=== PATIENT | male | born 1940 | race African-American/Black ===

== ENCOUNTER 2017-09-16 08:08 | Emergency (ER) | payer OTHER ==
[~2017-09-16] VITALS: Ht 185.4 cm; Wt 96.0 kg
[~2017-09-16 08:08] MED LIST: ASPI-516 PO; CLOP75TA PO; FINA5TAB2 PO; LOSA50TA2 PO; METO50TA PO; PRAV20TA2 PO; TERA10CA3 PO
[2017-09-16 08:10] VITALS: BP 199/87; PULSE 61; RESP 14; TEMP 98.2; O2SAT 100
--- NOTE | 2017-09-16 08:31 | PD ---
HPI Chief Complaint: Complaint Time Seen by Provider: 08:31 Travel History International Travel<30 days: No Contact w/Intl Traveler<30days: No Traveled to known affect area: No History of Present Illness HPI 77-year-old male came to the emergency room with his for hematuria. Patient says that at 7:00 this morning when he went to use the bathroom he was urinating blood. This is never happened to him before. There is no pain involved. Patient does not think he was able to empty his bladder completely. He has not had another urine output since then. Patient is on Plavix. Vital signs were stable. Patient has a large hydrocele and used to see urology but has stopped seeing them now. PFSH Past Medical History Narrative Medical List of his past medical, surgical, social and family history is reviewed from the nursing note. Hx Anticoagulant Therapy: Yes Arthritis: No Asthma: No Atrial Fibrillation: Yes Autoimmune Disease: No Heart Rhythm Problems: Yes Cancer: No Cardiovascular Problems: Yes (cabg, BRADYCARDIA ) High Cholesterol: No Chest Pain: No Congestive Heart Failure: No COPD: No Cerebrovascular Accident: No Diabetes: No Diminished Hearing: No Endocrine: No Gastrointestinal Disorders: No GERD: No Glaucoma: No Genitourinary: Yes Headaches: No Hepatitis: No Hiatal Hernia: No Hypertension: Yes Immune Disorder: No Implanted Vascular Access Dvce: Yes Kidney Stones: No Musculoskeletal: No Neurologic: No Psychiatric: No Reproductive: No Respiratory: No Migraines: No Myocardial Infarction: No Renal Failure: No Seizures: No Sleep Apnea: No Thyroid Disease: No Ulcer: No Past Surgical History AICD: No Cardiac Surgery: Yes (pacemaker insertion) Coronary Artery Bypass Graft: Yes Pacemaker: Yes Other Surgery: Yes (PM L SIDE ST ANA) Social History Alcohol Use: No Tobacco Use: No Substance Use: No Allergies-Medications (Allergen,Severity, Reaction): Coded Allergies: No Known Allergies (Verified Adverse Reaction, Unknown, 09/16/17) Comments No known drug allergies. Reported Meds & Prescriptions Reported Meds & Active Scripts Active Reported Losartan-Hydrochlorothiazide 50-12.5 Mg Tab 1 Tab PO DAILY Finasteride 5 Mg Tab 5 Mg PO DAILY Do not crush. Clopidogrel (Clopidogrel Bisulfate) 75 Mg Tab 75 Mg PO DAILY Pravastatin 20 Mg Tab 20 Mg PO DAILY Terazosin (Terazosin HCl) 10 Mg Cap 10 Mg PO HS Metoprolol Tartrate 50 Mg Tab 50 Mg PO DAILY Aspirin 81 Mg Chew 81 Mg PO DAILY Narrative Medication List of his home medications reviewed from the nursing note. Review of Systems Except as stated in HPI: all other systems reviewed are Neg Genitourinary: Positive: Hematuria Physical Exam Narrative GENERAL: Awake, alert, no obvious distress, anxious SKIN: Focused skin assessment warm/dry. HEAD: Atraumatic. Normocephalic. EYES: Pupils equal and round. No scleral icterus. No injection or drainage. ENT: No nasal bleeding or discharge. Mucous membranes pink and moist. NECK: Trachea midline. No JVD. CARDIOVASCULAR: Regular rate and rhythm. No murmur appreciated. RESPIRATORY: No accessory muscle use. Clear to auscultation. Breath sounds equal bilaterally. GASTROINTESTINAL: Abdomen soft, non-tender, nondistended. Hepatic and splenic margins not palpable. : Large hydrocele. Blood and clot at the end of the meatus MUSCULOSKELETAL: No obvious deformities. No clubbing. No cyanosis. No edema. NEUROLOGICAL: Awake and alert. No obvious cranial nerve deficits. Motor grossly within normal limits. Normal speech. PSYCHIATRIC: Appropriate mood and affect; insight and judgment normal. Data Data Last Documented VS Orders Orders Complete Blood Count With Diff (09/16/17 08:38) Basic Metabolic Panel (Bmp) (09/16/17 08:38) Prothrombin Time / Inr (Pt) (09/16/17 08:38) Urinalysis - C+S If Indicated (09/16/17 08:38) Bladder/Catheter Irrigation (09/16/17 08:38) Lidocaine 2% Jelly (Xylocaine 2% Jelly) (09/16/17 08:45) Type And Screen (09/16/17 08:40) Ct Abd/Pel W/O Iv Contrast (09/16/17 ) Ed Discharge Order (09/16/17 11:02) Labs Laboratory Tests Test 09/16/17 08:45 White Blood Count 4.9 TH/MM3 Red Blood Count 5.17 MIL/MM3 Hemoglobin 13.3 GM/DL Hematocrit 41.2 % Mean Corpuscular Volume 79.7 FL Mean Corpuscular Hemoglobin 25.8 PG Mean Corpuscular Hemoglobin Concent 32.4 % Red Cell Distribution Width 14.6 % Platelet Count 168 TH/MM3 Mean Platelet Volume 8.1 FL Neutrophils (%) (Auto) 62.4 % Lymphocytes (%) (Auto) 25.9 % Monocytes (%) (Auto) 7.2 % Eosinophils (%) (Auto) 3.3 % Basophils (%) (Auto) 1.2 % Neutrophils # (Auto) 3.1 TH/MM3 Lymphocytes # (Auto) 1.3 TH/MM3 Monocytes # (Auto) 0.4 TH/MM3 Eosinophils # (Auto) 0.2 TH/MM3 Basophils # (Auto) 0.1 TH/MM3 CBC Comment DIFF FINAL Differential Comment Prothrombin Time 11.6 SEC Prothromb Time International Ratio 1.1 RATIO Urine Color YELLOW Urine Turbidity CLEAR Urine pH 6.5 Urine Specific [place] 1.011 Urine Protein NEG mg/dL Urine Glucose (UA) NEG mg/dL Urine Ketones NEG mg/dL Urine Occult Blood SMALL Urine Nitrite NEG Urine Bilirubin NEG Urine Urobilinogen LESS THAN 2.0 MG/DL Urine Leukocyte Esterase NEG Urine RBC 18 /hpf Urine WBC LESS THAN 1 /hpf Urine Mucus FEW /lpf Microscopic Urinalysis Comment CULT NOT INDICATED Blood Urea Nitrogen 12 MG/DL Creatinine 1.28 MG/DL Random Glucose 125 MG/DL Calcium Level 9.0 MG/DL Sodium Level 140 MEQ/L Potassium Level 4.2 MEQ/L Chloride Level 107 MEQ/L Carbon Dioxide Level 26.7 MEQ/L Anion Gap 6 MEQ/L Estimat Glomerular Filtration Rate 66 ML/MIN MDM Medical Decision Making Medical Screen Exam Complete: Yes Emergency Medical Condition: Yes Medical Record Reviewed: Yes Differential Diagnosis Bladder tumor, renal tumor, hemorrhagic cystitis Narrative Course 10:26 AM patient had a three-way catheter in and got continuous bladder irrigation for half an hour. After the initial small clot that came out rest of the efluent has been clear with pink tinge. Blood test results of back and within acceptable limits. I have ordered for a CT of his abdomen and pelvis. If that is unremarkable I will discharge him home with a Beltran catheter and to follow up with urology. 11:[address] scan shows renal cyst. I will discharge him home with a catheter and a leg bag. Procedures EKG Prior to Arrival: No Diagnosis Primary Impression: Hematuria Qualified Codes: R31.9 - Hematuria, unspecified Referrals: Gurdeep Robles DO 2 days Additional Instructions: Please follow-up with the urologist whose name and number been provided to you on this discharge paper work. Return to the ER if condition worsens or any other new concerns. Follow the instruction of the nurse to empty the leg bag and take care of the catheter to see the urologist. Disposition: 01 DISCHARGE HOME Condition: Stable Maribel Manley MD Sep 16, 2017 08:31
[2017-09-16 08:34] VITALS: BP 185/81; PULSE 60; RESP 20; O2SAT 100
[2017-09-16] MEDS ORDERED: LIDOCAINE HCL 2% JELLY 5 ML SYRINGE TOPICAL ONE (08:45)
[2017-09-16 09:05] VITALS: BP 165/84; PULSE 60; RESP 20; O2SAT 100
[2017-09-16 09:25] LABS: AUTOMATED NEUTROPHIL # 3.1 TH/MM3 (1.8-7.7); BASOPHIL # 0.1 TH/MM3 (0-0.2); BASOPHIL % 1.2 % (0.0-2.0); EOSINOPHIL # 0.2 TH/MM3 (0-0.4); EOSINOPHIL % 3.3 % (0.0-4.0); HEMATOCRIT 41.2 % (39.0-51.0); HEMOGLOBIN 13.3 GM/DL (13.0-17.0); LYMPH % 25.9 % (9.0-44.0); LYMPHOCYTE # 1.3 TH/MM3 (1.0-4.8); MEAN CELL VOLUME 79.7 FL (80.0-100.0); MEAN CORPUSCULAR HEMOGLOBIN 25.8 PG (27.0-34.0); MEAN CORPUSCULAR HGB CONC 32.4 % (32.0-36.0); MEAN PLATELET VOLUME 8.1 FL (7.0-11.0); MONO % 7.2 % (0.0-8.0); MONOCYTE # 0.4 TH/MM3 (0-0.9); NEUT % 62.4 % (16.0-70.0); PLATELET COUNT 168 TH/MM3 (150-450); RED BLOOD COUNT 5.17 MIL/MM3 (4.50-5.90); RED CELL DISTRIBUTION WIDTH 14.6 % (11.6-17.2); WHITE BLOOD COUNT 4.9 TH/MM3 (4.0-11.0)
[2017-09-16 09:34] LABS: BILIRUBIN, URINE NEG (NEG); BLOOD, URINE SMALL (NEG); GLUCOSE,URINE NEG (NEG); KETONE, URINE NEG (NEG); MUCUS URINE FEW /lpf (OCC); NITRITE,URINE NEG (NEG); PH, URINE 6.5 (5.0-8.5); URINE COLOR YELLOW (YELLW/STRAW); URINE LEUKOCYTE ESTERASE NEG (NEG)
[2017-09-16 09:35] LABS: INTERNATIONAL NORMALIZED RATIO 1.1 RATIO; PROTHROMBIN TIME - PATIENT 11.6 SEC (9.8-11.6)
[2017-09-16 09:40] LABS: BICARBONATE 26.7 MEQ/L (21.0-32.0); CREATININE 1.28 MG/DL (0.60-1.30)
--- NOTE | 2017-09-16 10:46 | RADRPT ---
EXAM DATE/TIME: 09/16/2017 10:10 [facility] COMPARISON: No previous studies available for comparison. INDICATIONS : Blood in urine. ORAL CONTRAST: No oral contrast ingested. RADIATION DOSE: 8.24 CTDIvol (mGy) MEDICAL HISTORY : Cardiovascular disease. Hypertension. Afib SURGICAL HISTORY : CABG Pacemaker. ENCOUNTER: Initial ACUITY: 1 day PAIN SCALE: 0/10 LOCATION: abdomen TECHNIQUE: Volumetric scanning of the abdomen and pelvis was performed. Using automated exposure control and ad justment of the mA and/or kV according to patient size, radiation dose was kept as low as reasonably achievable to obtain optimal diagnostic quality images. DICOM format image data is available electro nically for review and comparison. FINDINGS: LOWER CHEST: There is minimal atelectasis at the posterior left lung base. There are pacing leads seen in the hear t. LIVER: Multiple calcified granulomas are seen. There is a nonspecific 0.7 cm hypodensity at the posterior in ferior aspect of the right lobe of the liver. Calcified gallstones are not seen. SPLEEN: Calcified granulomas are seen. PANCREAS: Within normal limits. KIDNEYS: No renal stones are seen. There are bilateral nonspecific renal masses including a 1.1 cm mass at the anterior lateral right upper kidney, a 2.2 cm hypodense mass at the lateral mid left kidney, and a 1 .2 cm hypodense mass at the medial mid left kidney. No hydronephrosis is seen. ADRENAL GLANDS: Within normal limits. VASCULAR: There is no aortic aneurysm. Atherosclerotic calcifications are seen throughout. BOWEL/MESENTERY: There is a left inguinal hernia containing segments of small bowel. No dilatation is seen to suggest obstruction. There are few scattered colonic diverticula without inflammatory change. ABDOMINAL WALL: Again noted is the left inguinal hernia containing small bowel. RETROPERITONEUM: There is no lymphadenopathy. BLADDER: There is a Beltran catheter in place. Air seen within the urinary bladder likely from the Beltran cathete r placement. REPRODUCTIVE: The prostate is enlarged. INGUINAL: Again noted is the left inguinal hernia. Small bowel and fat extends into the left hemiscrotum. MUSCULOSKELETAL: There is degenerative change in the lumbar spine and at the right hip. There is a nonspecific area of sclerosis seen at the left proximal femur. There is a few small sclerotic areas seen in the posterio r right iliac bone and in the mid sacrum. CONCLUSION: 1. No renal stones are seen. 2. 3 renal masses as described above. These may represent cysts. They're nonspecific on this noncontr ast CT examination. 3. Prostatic enlargement. 4. Left inguinal hernia containing mesenteric fat and small bowel extending into the left hemiscrotum . No dilatation of the bowel is seen to suggest obstruction. 5. Several nonspecific sclerotic areas in the pelvis. Tee Hernandez MD on September 16, 2017 at 10:34 Board Certified Radiologist. This report was verified electronically.
[2017-09-16 11:12] VITALS: BP 172/74
== END 2017-09-16 13:14 | disposition home or self-care (01) ==
LOC: NEPE 08:08
DX: R31.9 Hematuria, unspecified (principal); N28.1 Cyst of kidney, acquired; N43.3 Hydrocele, unspecified; N40.0 Benign prostatic hyperplasia without lower urinary tract symptoms; K40.90 Unilateral inguinal hernia, without obstruction or gangrene, not specified as recurrent; I48.91 Unspecified atrial fibrillation; I10 Essential (primary) hypertension; Z79.82 Long term (current) use of aspirin; Z79.899 Other long term (current) drug therapy
CPT/HCPCS: 51700; 74176; 80048; 81001; 85025; 85610; 86850; 86900; 86901